=== PATIENT | female | born 1990 | race Caucasian/White ===

== ENCOUNTER 2023-07-11 20:06 | Emergency (ER) | payer MEDICAID ==
[2023-07-11] MEDS ORDERED: Ketorolac 30 MG/ML SDV IM ONE (21:05)
[2023-07-11] MEDS ORDERED: Promethazine 25 MG/ML SDV IM ONE (21:06)
[2023-07-11 22:03] LABS: INFLUENZA A NAA NEGATIVE (NEGATIVE); INFLUENZA B NAA NEGATIVE (NEGATIVE)
[2023-07-11 22:07] LABS: CORONAVIRUS COVID-19 NAA NEGATIVE (NEGATIVE)
== END 2023-07-11 21:28 | disposition home or self-care (01) ==
LOC: FB.ED 20:06
DX: G43.909 Migraine, unspecified, not intractable, without status migrainosus (principal); B33.8 Other specified viral diseases; Z88.1 Allergy status to other antibiotic agents; Z88.2 Allergy status to sulfonamides; Z88.8 Allergy status to other drugs, medicaments and biological substances; Z91.09 Other allergy status, other than to drugs and biological substances; Z20.822 Contact with and (suspected) exposure to COVID-19
CPT/HCPCS: 0240U; 96372; 99284; J1885; J2550

== ENCOUNTER 2023-08-12 16:19 | Emergency (ER) | payer MEDICAID ==
[2023-08-12] MEDS ORDERED: Atropine/Diphenoxylate 0.025-2.5 MG Tab PO ONE ×2 (16:20→18:14)
[2023-08-12] MEDS ORDERED: Ondansetron 4 MG/2 ML SDV IVPUSH ONE (16:40)
[2023-08-12] MEDS ORDERED: Sodium Chloride 0.9% 1,000 ML IV ONE (16:40)
[2023-08-12] MEDS ORDERED: Sodium Chloride 0.9% 10 ML Syringe FLUSH PRN (16:40)
[2023-08-12 17:21] LABS: BILIRUBIN,URINE NEGATIVE (NEGATIVE); GLUCOSE,URINE NORMAL (NORMAL); KETONES,URINE NEGATIVE (NEGATIVE); LEUKOCYTE ESTERASE,URINE NEGATIVE (NEGATIVE); NITRITE,URINE NEGATIVE (NEGATIVE); OCCULT BLOOD,URINE TRACE (NEGATIVE); PH,URINE 6.5 (5.0-6.5); PROTEIN,URINE TRACE mg/dL (NEGATIVE); UROBILINOGEN,URINE NORMAL (NEGATIVE)
[2023-08-12 17:26] LABS: APPEARANCE,URINE CLEAR (CLEAR); BACTERIA,URINE FEW (NS); COLOR,URINE YELLOW (YELLOW); RBC,URINE 0-5 (0-5); SQUAMOUS EPITHELIAL CELLS,UR OCCASIONAL (NS,R,O)
[2023-08-12] MEDS ORDERED: Ketorolac 30 MG/ML SDV IVPUSH ONE (17:27)
[2023-08-12] MEDS ORDERED: Prochlorperazine 10 MG in Sodium Chloride 0.9% 50 ML IV ONE (17:27)
[2023-08-12 17:33] LABS: INFLUENZA A NAA NEGATIVE (NEGATIVE); INFLUENZA B NAA NEGATIVE (NEGATIVE)
[2023-08-12 17:34] LABS: CORONAVIRUS COVID-19 NAA NEGATIVE (NEGATIVE)
[2023-08-12 17:57] LABS: BASOPHILS PERCENT AUTO 0.2 % (0.2-1.5); HEMATOCRIT 41.8 % (34.2-48.2); HEMOGLOBIN 13.9 g/dL (11.4-15.5); LYMPHOCYTES ABSOLUTE AUTO 1.6 x10-3/uL (1.0-4.4); LYMPHOCYTES PERCENT AUTO 12.9 % (18.4-52.1); MEAN CORPUSCULAR HGB CONC 33.3 g/dL (31.9-34.8); MEAN CORPUSCULAR VOLUME 86.9 fL (76.7-100.5); MONOCYTES ABSOLUTE AUTO 0.5 x10-3/uL (0.3-1.0); MONOCYTES PERCENT AUTO 4.1 % (4.4-15.7); NEUTROPHILS ABSOLUTE AUTO 10.2 x10-3/uL (1.5-6.3); NEUTROPHILS PERCENT AUTO 82.8 % (30.8-76.2); PLATELET COUNT,PLT 342 x10(3)uL (151-488); RED CELL DISTRIBUTION WIDTH 14.7 % (12.3-16.5); WHITE BLOOD CELL COUNT,WBC 12.4 x10-3/uL (3.0-10.3)
[2023-08-12 18:01] LABS: BLOOD UREA NITROGEN,BUN 13 mg/dL (7-18); BUN/CREATININE RATIO 14.4 (9-20); CARBON DIOXIDE,CO2 29 mmol/L (21-32); CHLORIDE,CL 113 mmol/L (100-110); CREATININE 0.9 mg/dL (0.55-1.02); ESTIMATED GFR 87 mL/min (>60); GLUCOSE RANDOM 96 mg/dL (80-116); POTASSIUM,K 4.6 mmol/L (3.5-5.3); SODIUM,NA 147 mmol/L (135-145)
[2023-08-12 18:05] LABS: A/G RATIO 0.9; ALANINE AMINOTRANSFERASE,ALT 26 U/L (12-36); ALBUMIN 3.4 g/dL (3.5-5.2); ALKALINE PHOSPHATASE 75 IU/L (56-112); ASPARTATE AMNIOTRANSFERASE,AST 16 IU/L (5-25); BILIRUBIN TOTAL 0.8 mg/dL (0.1-1.3); PROTEIN TOTAL,TP 7.3 g/dL (6.0-8.0)
== END 2023-08-12 18:45 | disposition home or self-care (01) ==
LOC: FB.ED 16:19
DX: K52.9 Noninfective gastroenteritis and colitis, unspecified (principal); G43.909 Migraine, unspecified, not intractable, without status migrainosus; E66.9 Obesity, unspecified; Z68.34 Body mass index [BMI] 34.0-34.9, adult; Z91.018 Allergy to other foods; Z88.1 Allergy status to other antibiotic agents; Z88.8 Allergy status to other drugs, medicaments and biological substances; Z88.2 Allergy status to sulfonamides; Z86.16 Personal history of COVID-19; Z20.822 Contact with and (suspected) exposure to COVID-19
CPT/HCPCS: 0240U; 36415; 80053; 81001; 85025; 96361; 96365; 96375; 99284; A9270; J0780; J1885; J2405; J3490; J7030

== ENCOUNTER 2023-09-03 11:07 | Emergency (ER) | payer MEDICAID ==
[2023-09-03] MEDS ORDERED: Sodium Chloride 0.9% 10 ML Syringe FLUSH PRN (11:24)
[2023-09-03 11:48] LABS: BASOPHILS PERCENT AUTO 0.5 % (0.2-1.5); EOSINOPHILS ABSOLUTE AUTO 0.7 x10-3/uL (0.0-0.8); EOSINOPHILS PERCENT AUTO 12.2 % (0.6-8.1); HEMATOCRIT 41.9 % (34.2-48.2); HEMOGLOBIN 14.1 g/dL (11.4-15.5); LYMPHOCYTES ABSOLUTE AUTO 1.6 x10-3/uL (1.0-4.4); MEAN CORPUSCULAR HEMOGLOBIN 29.2 pg (23.9-33.9); MEAN CORPUSCULAR HGB CONC 33.7 g/dL (31.9-34.8); MEAN CORPUSCULAR VOLUME 86.7 fL (76.7-100.5); MEAN PLATELET VOLUME 8.3 fL (7.1-12.4); MONOCYTES ABSOLUTE AUTO 0.6 x10-3/uL (0.3-1.0); NEUTROPHILS PERCENT AUTO 50.3 % (30.8-76.2); PLATELET COUNT,PLT 296 x10(3)uL (151-488); RED BLOOD CELL COUNT 4.84 x10(6)uL (3.60-5.20); RED CELL DISTRIBUTION WIDTH 14.1 % (12.3-16.5)
[2023-09-03 11:50] LABS: BLOOD UREA NITROGEN,BUN 16 mg/dL (7-18); BUN/CREATININE RATIO 17.8 (9-20); CALCIUM 9.1 mg/dL (8.6-10.2); CARBON DIOXIDE,CO2 29 mmol/L (21-32); CHLORIDE,CL 106 mmol/L (100-110); CREATININE 0.9 mg/dL (0.55-1.02); EST CRCL DRUG DOSING (CG) 77.49 mL/min; ESTIMATED GFR 87 mL/min (>60); GLUCOSE RANDOM 79 mg/dL (80-116); POTASSIUM,K 4.1 mmol/L (3.5-5.3); SODIUM,NA 138 mmol/L (135-145)
[2023-09-03 11:56] LABS: A/G RATIO 0.9; ALANINE AMINOTRANSFERASE,ALT 25 U/L (12-36); ALBUMIN 3.4 g/dL (3.5-5.2); ALKALINE PHOSPHATASE 100 IU/L (56-112); ASPARTATE AMNIOTRANSFERASE,AST 19 IU/L (5-25); BILIRUBIN TOTAL 0.7 mg/dL (0.1-1.3)
[2023-09-03 11:58] LABS: PTT,PARTIAL THROMBOPLSTIN TIME 26.7 SECONDS (24.4-33.2)
[2023-09-03 12:01] LABS: INR 0.94 (1.00-1.24); PROTHROMBIN TIME 9.7 sec (9.0-11.1)
[2023-09-03] MEDS ORDERED: Ketorolac 30 MG/ML SDV IVPUSH ONE (12:01)
[2023-09-03] MEDS ORDERED: Ondansetron 4 MG/2 ML SDV IVPUSH ONE (12:01)
[2023-09-03] MEDS ORDERED: Sodium Chloride 0.9% 1,000 ML IV SCH (12:15)
[2023-09-03] MEDS ORDERED: Promethazine 25 MG Tab PO STA (13:33)
== END 2023-09-03 13:36 | disposition home or self-care (01) ==
LOC: FB.ED 11:07
DX: S09.90XA Unspecified injury of head, initial encounter (principal); G43.909 Migraine, unspecified, not intractable, without status migrainosus; N18.2 Chronic kidney disease, stage 2 (mild); E66.9 Obesity, unspecified; Z87.891 Personal history of nicotine dependence; Z86.16 Personal history of COVID-19; Z79.899 Other long term (current) drug therapy; Z88.0 Allergy status to penicillin; Z88.1 Allergy status to other antibiotic agents; Z88.8 Allergy status to other drugs, medicaments and biological substances; Z91.048 Other nonmedicinal substance allergy status; Z91.018 Allergy to other foods; Z88.2 Allergy status to sulfonamides; Z68.36 Body mass index [BMI] 36.0-36.9, adult; W22.8XXA Striking against or struck by other objects, initial encounter
CPT/HCPCS: 70450; 80053; 85025; 85610; 85730; 93005; 96361; 96374; 96375; 99284; A9270; J1885; J2405; J3490; J7030

== ENCOUNTER 2023-10-13 18:48 | Emergency (ER) | payer SELFPAY ==
[2023-10-13 19:42] LABS: BASOPHILS ABSOLUTE AUTO 0.1 x10-3/uL (0.0-0.1); BASOPHILS PERCENT AUTO 1.2 % (0.2-1.5); EOSINOPHILS ABSOLUTE AUTO 0.9 x10-3/uL (0.0-0.8); EOSINOPHILS PERCENT AUTO 9.3 % (0.6-8.1); HEMATOCRIT 40.9 % (34.2-48.2); HEMOGLOBIN 13.5 g/dL (11.4-15.5); LYMPHOCYTES ABSOLUTE AUTO 2.7 x10-3/uL (1.0-4.4); LYMPHOCYTES PERCENT AUTO 29.9 % (18.4-52.1); MEAN CORPUSCULAR HEMOGLOBIN 28.7 pg (23.9-33.9); MEAN CORPUSCULAR VOLUME 86.9 fL (76.7-100.5); MEAN PLATELET VOLUME 8.6 fL (7.1-12.4); MONOCYTES ABSOLUTE AUTO 0.7 x10-3/uL (0.3-1.0); MONOCYTES PERCENT AUTO 7.7 % (4.4-15.7); NEUTROPHILS ABSOLUTE AUTO 4.7 x10-3/uL (1.5-6.3); NEUTROPHILS PERCENT AUTO 51.9 % (30.8-76.2); PLATELET COUNT,PLT 307 x10(3)uL (151-488); RED BLOOD CELL COUNT 4.71 x10(6)uL (3.60-5.20); WHITE BLOOD CELL COUNT,WBC 9.1 x10-3/uL (3.0-10.3)
[2023-10-13 19:45] LABS: BLOOD UREA NITROGEN,BUN 19 mg/dL (7-18); CALCIUM 9.3 mg/dL (8.6-10.2); CARBON DIOXIDE,CO2 27 mmol/L (21-32); CHLORIDE,CL 105 mmol/L (100-110); ESTIMATED GFR 77 mL/min (>60); GLUCOSE RANDOM 88 mg/dL (80-116); POTASSIUM,K 3.6 mmol/L (3.5-5.3); SODIUM,NA 137 mmol/L (135-145)
[2023-10-13 20:13] LABS: INFLUENZA A NAA NEGATIVE (NEGATIVE); INFLUENZA B NAA NEGATIVE (NEGATIVE); RESPIRATORY SYNCYTIAL VIR NAA NEGATIVE (NEGATIVE)
[2023-10-13 20:18] LABS: CORONAVIRUS COVID-19 NAA NEGATIVE (NEGATIVE)
== END 2023-10-13 22:00 | disposition home or self-care (01) ==
LOC: FB.ED 18:48
DX: F41.9 Anxiety disorder, unspecified (principal); F43.9 Reaction to severe stress, unspecified; E66.9 Obesity, unspecified; Z79.899 Other long term (current) drug therapy; Z88.1 Allergy status to other antibiotic agents; Z88.2 Allergy status to sulfonamides; Z88.0 Allergy status to penicillin; Z91.018 Allergy to other foods; Z91.048 Other nonmedicinal substance allergy status
CPT/HCPCS: 0241U; 36415; 80048; 84484; 85025; 86140; 93005; 99284; 93010; 99283

== ENCOUNTER 2024-01-06 22:27 | Emergency (ER) | payer MEDICAID ==
[2024-01-06] MEDS: Clindamycin HCl 150 MG Cap PO ONE (23:15)
== END 2024-01-06 23:31 | disposition home or self-care (01) ==
LOC: FB.ED 22:27
DX: S81.852A Open bite, left lower leg, initial encounter (principal); Z88.0 Allergy status to penicillin; Z88.1 Allergy status to other antibiotic agents; Z91.018 Allergy to other foods; Z91.048 Other nonmedicinal substance allergy status; Z88.8 Allergy status to other drugs, medicaments and biological substances; Z88.2 Allergy status to sulfonamides; Z79.899 Other long term (current) drug therapy; Z86.16 Personal history of COVID-19; W54.0XXA Bitten by dog, initial encounter
CPT/HCPCS: 99283; A9270

== ENCOUNTER 2024-01-16 17:22 | Emergency (ER) | payer MEDICAID ==
[2024-01-16] MEDS: Ondansetron 4 MG Tab.DIS PO STA (17:49)
[2024-01-16 18:17] LABS: CORONAVIRUS COVID-19 NAA NEGATIVE (NEGATIVE); INFLUENZA A NAA NEGATIVE (NEGATIVE); INFLUENZA B NAA NEGATIVE (NEGATIVE); RESPIRATORY SYNCYTIAL VIR NAA NEGATIVE (NEGATIVE)
[2024-01-16] MEDS ORDERED: Sodium Chloride 0.9% 10 ML Syringe FLUSH PRN (18:29)
[2024-01-16] MEDS: Sodium Chloride 0.9% 1,000 ML IV SCH (18:39)
[2024-01-16] MEDS: predniSONE 20 MG Tab PO ONE (19:05)
[2024-01-16] MEDS: Prochlorperazine 10 MG/2 ML SDV IVPUSH ONE (19:26)
[2024-01-16] MEDS: Ketorolac 30 MG/ML SDV IVPUSH ONE (19:27)
[2024-01-16] MEDS: Cephalexin 500 MG Cap PO ONE (20:13)
== END 2024-01-16 21:05 | disposition home or self-care (01) ==
LOC: FB.ED 17:22
DX: G43.909 Migraine, unspecified, not intractable, without status migrainosus (principal); J01.90 Acute sinusitis, unspecified; Z88.0 Allergy status to penicillin; Z88.1 Allergy status to other antibiotic agents; Z91.018 Allergy to other foods; Z91.048 Other nonmedicinal substance allergy status; Z88.8 Allergy status to other drugs, medicaments and biological substances; Z88.2 Allergy status to sulfonamides; Z79.899 Other long term (current) drug therapy; Z86.16 Personal history of COVID-19
CPT/HCPCS: 0241U; 71045; 96361; 96374; 96375; 99283; 99283-25; A9270-GY; J0780; J1885; J7030; J7512; Q0162

== ENCOUNTER 2024-04-06 19:35 | Emergency (ER) | payer MEDICAID ==
[2024-04-06] MEDS: Sodium Chloride 0.9% 500 ML IV ONE (20:02)
[2024-04-06 20:38] LABS: BLOOD UREA NITROGEN,BUN 17 mg/dL (7-18); CALCIUM 8.9 mg/dL (8.6-10.2); CARBON DIOXIDE,CO2 27 mmol/L (21-32); CHLORIDE,CL 109 mmol/L (100-110); ESTIMATED GFR 77 mL/min (>60); GLUCOSE RANDOM 95 mg/dL (80-116); POTASSIUM,K 3.8 mmol/L (3.5-5.3); SODIUM,NA 143 mmol/L (135-145)
[2024-04-06 20:40] LABS: BASOPHILS ABSOLUTE AUTO 0.1 x10-3/uL (0.0-0.1); BASOPHILS PERCENT AUTO 0.6 % (0.2-1.5); EOSINOPHILS ABSOLUTE AUTO 0.6 x10-3/uL (0.0-0.8); EOSINOPHILS PERCENT AUTO 6.2 % (0.6-8.1); HEMATOCRIT 38.7 % (34.2-48.2); LYMPHOCYTES ABSOLUTE AUTO 2.3 x10-3/uL (1.0-4.4); MEAN CORPUSCULAR HEMOGLOBIN 28.2 pg (23.9-33.9); MEAN CORPUSCULAR HGB CONC 33.5 g/dL (31.9-34.8); MEAN PLATELET VOLUME 8.9 fL (7.1-12.4); MONOCYTES ABSOLUTE AUTO 0.6 x10-3/uL (0.3-1.0); MONOCYTES PERCENT AUTO 6.6 % (4.4-15.7); NEUTROPHILS ABSOLUTE AUTO 5.4 x10-3/uL (1.5-6.3); NEUTROPHILS PERCENT AUTO 60.6 % (30.8-76.2); PLATELET COUNT,PLT 264 x10(3)uL (151-488); RED CELL DISTRIBUTION WIDTH 15.1 % (12.3-16.5)
[2024-04-06] MEDS: Sodium Chloride 0.9% 1,000 ML IV SCH (20:41)
[2024-04-06 20:50] LABS: A/G RATIO 0.9; ALANINE AMINOTRANSFERASE,ALT 19 U/L (12-36); ALBUMIN 3.3 g/dL (3.5-5.2); ALKALINE PHOSPHATASE 71 IU/L (56-112); ASPARTATE AMNIOTRANSFERASE,AST 16 IU/L (5-25); BILIRUBIN TOTAL 0.7 mg/dL (0.1-1.3); MAGNESIUM 2.1 mg/dL (1.8-2.5); PROTEIN TOTAL,TP 6.9 g/dL (6.0-8.0)
[2024-04-06 20:58] LABS: BILIRUBIN,URINE NEGATIVE (NEGATIVE); GLUCOSE,URINE NORMAL (NORMAL); KETONES,URINE NEGATIVE (NEGATIVE); LEUKOCYTE ESTERASE,URINE NEGATIVE (NEGATIVE); NITRITE,URINE NEGATIVE (NEGATIVE); OCCULT BLOOD,URINE NEGATIVE (NEGATIVE); PROTEIN,URINE NEGATIVE (NEGATIVE); UROBILINOGEN,URINE NORMAL (NEGATIVE)
[2024-04-06 21:01] LABS: APPEARANCE,URINE CLEAR (CLEAR); BACTERIA,URINE RARE (NS); COLOR,URINE YELLOW (YELLOW); RBC,URINE 0-5 (0-5); SQUAMOUS EPITHELIAL CELLS,UR OCCASIONAL (NS,R,O); WBC,URINE 0-5 (0-5)
[2024-04-06] MEDS: Prochlorperazine 10 MG/2 ML SDV IVPUSH ONE (23:08)
[2024-04-06] MEDS: diphenhydrAMINE 50 MG/ML SDV IVPUSH ONE (23:08)
[2024-04-06] MEDS: Sodium Chloride 0.9% 1,000 ML IV ONE (23:08)
== END 2024-04-07 00:05 | disposition home or self-care (01) ==
LOC: FB.ED 19:35
DX: T67.5XXA Heat exhaustion, unspecified, initial encounter (principal); G40.909 Epilepsy, unspecified, not intractable, without status epilepticus; E86.0 Dehydration; E66.9 Obesity, unspecified; Z88.0 Allergy status to penicillin; Z88.1 Allergy status to other antibiotic agents; Z88.2 Allergy status to sulfonamides; Z91.018 Allergy to other foods; Z91.048 Other nonmedicinal substance allergy status; Z88.8 Allergy status to other drugs, medicaments and biological substances; Z79.899 Other long term (current) drug therapy; Z86.16 Personal history of COVID-19; Z90.49 Acquired absence of other specified parts of digestive tract
CPT/HCPCS: 36415; 80053; 81001; 81025; 83605; 83735; 85025; 86140; 96361; 96374; 96375; 99285-25; J0780; J1200; J7030; J7040

== ENCOUNTER 2024-08-28 09:48 | Emergency (ER) | payer MEDICAID ==
[2024-08-28] MEDS: traMADol 50 MG Tab PO ONE (11:10)
[2024-08-28] MEDS: tiZANidine 4 MG Tab PO ONE (11:11)
[2024-08-28] MEDS: Acetaminophen 500 MG Tab PO ONE (11:11)
[2024-08-28] MEDS: Lidocaine 4% 1 each Patch TOP STA (13:03)
[2024-08-29] MEDS ORDERED: tiZANidine 4 MG Tab PO ONE (10:44)
== END 2024-08-28 13:05 | disposition home or self-care (01) ==
LOC: FB.ED 09:48
DX: G43.909 Migraine, unspecified, not intractable, without status migrainosus (principal); M50.30 Other cervical disc degeneration, unspecified cervical region; E66.9 Obesity, unspecified; Z90.49 Acquired absence of other specified parts of digestive tract; Z88.0 Allergy status to penicillin; Z88.1 Allergy status to other antibiotic agents; Z88.2 Allergy status to sulfonamides; Z88.8 Allergy status to other drugs, medicaments and biological substances; Z91.018 Allergy to other foods; Z91.048 Other nonmedicinal substance allergy status; Z79.899 Other long term (current) drug therapy; Z68.35 Body mass index [BMI] 35.0-35.9, adult
CPT/HCPCS: 70450; 72125; 99284; A9270

== ENCOUNTER 2024-09-24 11:08 | Emergency (ER) | payer MEDICAID ==
[2024-09-24] MEDS: Sodium Chloride 0.9% 1,000 ML IV ONE (11:47)
[2024-09-24] MEDS: methylPREDNISolone Sodium Succinate 125 MG/2 ML SDV IVPUSH ONE (11:47)
[2024-09-24 11:52] LABS: BASOPHILS ABSOLUTE AUTO 0.1 x10-3/uL (0.0-0.1); BASOPHILS PERCENT AUTO 0.9 % (0.2-1.5); EOSINOPHILS ABSOLUTE AUTO 0.4 x10-3/uL (0.0-0.8); EOSINOPHILS PERCENT AUTO 3.7 % (0.6-8.1); HEMATOCRIT 43.1 % (34.2-48.2); HEMOGLOBIN 14.9 g/dL (11.4-15.5); LYMPHOCYTES ABSOLUTE AUTO 1.8 x10-3/uL (1.0-4.4); LYMPHOCYTES PERCENT AUTO 16.2 % (18.4-52.1); MEAN CORPUSCULAR HGB CONC 34.5 g/dL (31.9-34.8); MEAN CORPUSCULAR VOLUME 86.8 fL (76.7-100.5); MEAN PLATELET VOLUME 7.8 fL (7.1-12.4); MONOCYTES ABSOLUTE AUTO 0.6 x10-3/uL (0.3-1.0); MONOCYTES PERCENT AUTO 5.7 % (4.4-15.7); NEUTROPHILS ABSOLUTE AUTO 8.1 x10-3/uL (1.5-6.3); NEUTROPHILS PERCENT AUTO 73.5 % (30.8-76.2); PLATELET COUNT,PLT 353 x10(3)uL (151-488); RED BLOOD CELL COUNT 4.96 x10(6)uL (3.60-5.20); RED CELL DISTRIBUTION WIDTH 13.4 % (12.3-16.5)
[2024-09-24 11:53] LABS: BLOOD UREA NITROGEN,BUN 17 mg/dL (7-18); BUN/CREATININE RATIO 18.9 (9-20); CALCIUM 9.6 mg/dL (8.6-10.2); CARBON DIOXIDE,CO2 28 mmol/L (21-32); CHLORIDE,CL 106 mmol/L (100-110); CREATININE 0.9 mg/dL (0.55-1.02); EST CRCL DRUG DOSING (CG) 76.77 mL/min; ESTIMATED GFR 87 mL/min (>60); GLUCOSE RANDOM 110 mg/dL (80-116); POTASSIUM,K 4.6 mmol/L (3.5-5.3); SODIUM,NA 144 mmol/L (135-145)
[2024-09-24 11:59] LABS: ALANINE AMINOTRANSFERASE,ALT 25 U/L (12-36); ALBUMIN 3.7 g/dL (3.5-5.2); ALKALINE PHOSPHATASE 76 IU/L (56-112); ASPARTATE AMNIOTRANSFERASE,AST 17 IU/L (5-25); BILIRUBIN TOTAL 0.6 mg/dL (0.1-1.3); PROTEIN TOTAL,TP 7.6 g/dL (6.0-8.0)
[2024-09-24] MEDS: Ondansetron 4 MG/2 ML SDV IVPUSH ONE (12:25)
[2024-09-24] MEDS: Ketorolac 30 MG/ML SDV IVPUSH ONE (12:27)
== END 2024-09-24 13:25 | disposition home or self-care (01) ==
LOC: FB.ED 11:08
DX: U07.1 COVID-19 (principal); E66.9 Obesity, unspecified; Z68.36 Body mass index [BMI] 36.0-36.9, adult; Z90.49 Acquired absence of other specified parts of digestive tract; Z88.0 Allergy status to penicillin; Z88.1 Allergy status to other antibiotic agents; Z88.2 Allergy status to sulfonamides; Z88.8 Allergy status to other drugs, medicaments and biological substances; Z91.018 Allergy to other foods; Z91.048 Other nonmedicinal substance allergy status; Z79.899 Other long term (current) drug therapy
CPT/HCPCS: 36415; 71045; 80053; 83605; 85025; 86140; 96361; 96374; 96375; 99284; J1885; J2405; J2919; J7030

== ENCOUNTER 2025-02-19 21:26 | Emergency (ER) | payer MEDICAID | END 2025-02-19 22:38 | disposition home or self-care (01) | LOC: FB.ED 21:26 | DX: S80.11XA Contusion of right lower leg, initial encounter (principal); Z90.49 Acquired absence of other specified parts of digestive tract; Z88.1 Allergy status to other antibiotic agents; Z88.2 Allergy status to sulfonamides; Z88.0 Allergy status to penicillin; Z88.8 Allergy status to other drugs, medicaments and biological substances; Z91.018 Allergy to other foods; Z91.048 Other nonmedicinal substance allergy status; Z79.899 Other long term (current) drug therapy; W22.8XXA Striking against or struck by other objects, initial encounter | CPT/HCPCS: 73610-RT; 99283 ==

== ENCOUNTER 2025-04-11 16:55 | Emergency (ER) | payer MEDICAID ==
[2025-04-11 17:50] LABS: BASOPHILS ABSOLUTE AUTO 0.1 x10-3/uL (0.0-0.1); BASOPHILS PERCENT AUTO 0.8 % (0.2-1.5); EOSINOPHILS ABSOLUTE AUTO 0.6 x10-3/uL (0.0-0.8); EOSINOPHILS PERCENT AUTO 6.5 % (0.6-8.1); LYMPHOCYTES ABSOLUTE AUTO 2.0 x10-3/uL (1.0-4.4); LYMPHOCYTES PERCENT AUTO 23.2 % (18.4-52.1); MEAN PLATELET VOLUME 8.1 fL (7.1-12.4); MONOCYTES ABSOLUTE AUTO 0.4 x10-3/uL (0.3-1.0); MONOCYTES PERCENT AUTO 5.2 % (4.4-15.7); NEUTROPHILS ABSOLUTE AUTO 5.5 x10-3/uL (1.5-6.3); NEUTROPHILS PERCENT AUTO 64.3 % (30.8-76.2); PLATELET COUNT,PLT 367 x10(3)uL (151-488); RED BLOOD CELL COUNT 5.07 x10(6)uL (3.60-5.20); RED CELL DISTRIBUTION WIDTH 14.1 % (12.3-16.5); WHITE BLOOD CELL COUNT,WBC 8.6 x10-3/uL (3.0-10.3)
[2025-04-11 17:55] LABS: BLOOD UREA NITROGEN,BUN 21 mg/dL (7-18); CARBON DIOXIDE,CO2 30 mmol/L (21-32); CHLORIDE,CL 106 mmol/L (100-110); CREATININE 1.0 mg/dL (0.55-1.02); EST CRCL DRUG DOSING (CG) 68.45 mL/min; ESTIMATED GFR 76 mL/min (>60); GLUCOSE RANDOM 97 mg/dL (80-116); POTASSIUM,K 4.2 mmol/L (3.5-5.3); SODIUM,NA 141 mmol/L (135-145)
[2025-04-11] MEDS: Prochlorperazine 10 MG/2 ML SDV IVPUSH ONE (17:58)
[2025-04-11] MEDS: diphenhydrAMINE 50 MG/ML SDV IVPUSH ONE (17:58)
[2025-04-11 18:00] LABS: A/G RATIO 0.9; ALANINE AMINOTRANSFERASE,ALT 23 U/L (12-36); ASPARTATE AMNIOTRANSFERASE,AST 20 IU/L (5-25); BILIRUBIN TOTAL 0.9 mg/dL (0.1-1.3); PROTEIN TOTAL,TP 7.7 g/dL (6.0-8.0)
[2025-04-11] MEDS: Sodium Chloride 0.9% 10 ML Syringe FLUSH PRN (18:05)
[2025-04-11] MEDS: Ketorolac 30 MG/ML SDV IVPUSH ONE ×2 (18:07→18:20)
== END 2025-04-11 19:30 | disposition home or self-care (01) ==
LOC: FB.ED 16:55
DX: G43.911 Migraine, unspecified, intractable, with status migrainosus (principal); E86.0 Dehydration; Z90.49 Acquired absence of other specified parts of digestive tract; Z88.0 Allergy status to penicillin; Z88.1 Allergy status to other antibiotic agents; Z88.2 Allergy status to sulfonamides; Z88.8 Allergy status to other drugs, medicaments and biological substances; Z91.018 Allergy to other foods; Z79.899 Other long term (current) drug therapy
CPT/HCPCS: 36415; 80053; 85025; 96361; 96374; 96375; 99284-25; J0780; J1200; J1885; J7030

== ENCOUNTER 2025-05-03 17:30 | Emergency (ER) | payer MEDICAID | END 2025-05-03 18:20 | disposition home or self-care (01) | LOC: FB.ED 17:30 | DX: S50.01XA Contusion of right elbow, initial encounter (principal); Z88.0 Allergy status to penicillin; Z88.1 Allergy status to other antibiotic agents; Z91.048 Other nonmedicinal substance allergy status; Z91.018 Allergy to other foods; Z88.8 Allergy status to other drugs, medicaments and biological substances; Z88.2 Allergy status to sulfonamides; Z79.899 Other long term (current) drug therapy; Z90.49 Acquired absence of other specified parts of digestive tract; W01.198A Fall on same level from slipping, tripping and stumbling with subsequent striking against other object, initial encounter; Y93.89 Activity, other specified | CPT/HCPCS: 73080-RT; 99283 ==